=== PATIENT | male | born 1990 | race Caucasian/White ===

== ENCOUNTER 2018-03-15 23:20 | Emergency (ER) | payer SELFPAY ==
[2018-03-15 23:37] VITALS: BP 133/76
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
== END 2018-03-16 01:30 | disposition home or self-care (01) ==
LOC: ER 23:20
DX: S02.82XA Fracture of other specified skull and facial bones, left side, initial encounter for closed fracture (principal); S01.112A Laceration without foreign body of left eyelid and periocular area, initial encounter; Y04.2XXA Assault by strike against or bumped into by another person, initial encounter; F17.200 Nicotine dependence, unspecified, uncomplicated
CPT/HCPCS: 70450; 70486; 72125; 99284

== ENCOUNTER 2018-03-16 07:18 | Emergency (ER) | payer OTHER ==
[2018-03-16] MEDS ORDERED: LIDOCAINE 1%/EPINEPHRINE INJ 20 ML VIAL INJ ONE (08:30)
[2018-03-16] MEDS ORDERED: BACITRACIN ZINC OINTMENT 15 GM TP ONE (09:49)
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
[2018-03-16 10:50] VITALS: BP 126/74
== END 2018-03-16 10:36 | disposition home or self-care (01) ==
LOC: ER 07:18
PROC: 0HQ1XZZ Repair Face Skin, External Approach (ICD-10-PCS; principal; 2018-03-16)
DX: S01.112A Laceration without foreign body of left eyelid and periocular area, initial encounter (principal); F17.200 Nicotine dependence, unspecified, uncomplicated; Y09 Assault by unspecified means
CPT/HCPCS: 99283; 12013; J3490 ×2